=== PATIENT | female | born 1955 | race Hispanic/Latino ===

== ENCOUNTER 2017-04-08 15:07 | Emergency (ER) | payer OTHER ==
[~2017-04-08] VITALS: Ht 180.3 cm; Wt 91.1 kg
[~2017-04-08 15:07] MED LIST: ASCORBIC ACID PO; KLO5T PO; MAGN400O4 PO; PANT40TA2 PO; PRED5DRO6 AFFECT_EYE; RANI150T11 PO; SODIUM BICARBONATE PO
[2017-04-08 15:21] VITALS: BP 159/88; PULSE 77; RESP 18; O2SAT 98
[2017-04-08 15:38] VITALS: BP 139/71; PULSE 68; RESP 18; O2SAT 100
--- NOTE | 2017-04-08 15:47 | ED.REPORT ---
HPI-Headache Date of Service April 08, 2017 ED Provider: Cricket Lima MD Pt is a 61 y/o female w/ a hx of NIDDM, hyperlipidemia, presenting to the ED c/ o left-sided lumbar back pain with radiation up to the neck and LUE onset 1 week ago. She described her pain as a dull ache. Her pain is exacerbated by bending, twisting, movement, and lifting her arm. Pain is relieved by Ibuprofen and seems to be better in the morning. She has never experienced similar symptoms. She c/o associated nausea. Nursing Notes Stated Complaint: PAIN IN BACK OF THE HEAD Chief Complaint: General Complaint Nursing Notes Reviewed: Yes Allergies: Coded Allergies: No Known Allergies (Unverified , 04/21/16) Scheduled ([sod bicarb/vit C]) 1 PACKET PO HS Magnesium Hydroxide (Milk of Magnesia) 400 Mg/5 Ml Oral.susp 5 ML PO DAILY Pantoprazole DR (Protonix) 40 Mg Tablet 40 MG PO BID Prednisolone Acetate (Prednisolone Acetate) 5 Ml Drops.susp 1 DROP AFFECT_EYE DIRECTED Ranitidine (Zantac) 150 Mg Tablet 150 MG PO DAILY Scheduled PRN Clonazepam (Clonazepam) 0.5 Mg Tablet Unknown Dose PO HS PRN PRN For Insomnia General Time Seen by MD: 15:30 Chief Complaint Other (back pain) Hx Obtained From: Patient Arrived By: Walk-in Sudden in Onset?: No Onset Occurred: 1 week ago Symptom Duration: Since onset Quality: Aching, Painful Severity: Current: Moderate Severity: Maximum: Moderate Similar Sx Previous: No Past Medical History Past Medical History GERD Diverticulitis NIDDM Reports: Hyperlipidemia Past Surgical History Breast cyst removal Eye surgery x2 Reports: Appendectomy, Cholecystectomy, Hysterectomy Smoking History Never Smoker Social History Other Social History: Good social support, Local resident Ambulatory Status Independent Review of Systems Constitutional: Denies: Chills, Fever GI: Reports: Nausea, Denies: Vomiting Musculoskeletal: Reports: Back pain, Extremity pain, Neck pain Neurologic: Reports: Headache Complete sys rev & neg: except as marked. Physical Exam Initial Vital Signs Vital Signs (First) Date Time Temp Pulse Resp B/P Pulse Ox O2 Delivery O2 Flow Rate FiO2 04/08/17 15:21 37.0 77 18 159/88 98 Room Air Initial VS: Reviewed, Vital signs abnormal ENT: Mucous membranes moist, Conjunctiva normal, No scleral icterus Respiratory: Breath sounds normal, Clear to auscultation, No respiratory distress Cardiovascular: Regular rate & rhythm, Heart sounds normal, Intact distal pulses Abdomen / GI: Soft, Non-tender, No guarding, No rebound, No distention Extremities: Vascular intact, Neuro intact, No swelling, No tenderness Skin: Warm, Dry, No cyanosis Psychiatric: Mood/affect normal, Behavior normal, Normal thought content General/Constitutional: Awake, Alert, No acute distress, Well appearing, Cooperative, Not toxic appearing Head / Eyes: Atraumatic, Normocephalic, PERRL Neck: Atraumatic, Supple, No meningismus, Full range of motion, No adenopathy, No swelling, Non-tender, No midline vertebral tend Neurologic: Oriented X3, Speech NL, No motor deficits, No sensory deficits, CN II - XII intact, Cerebellar NL, Memory NL Back: Atraumatic, Inspection NL, Full range of motion, No midline vertebral tend Tenderness to palpation about lumbar paraspinal region left greater than right. Interpretation & Diagnostics Lab Results Interpretation Result Diagram: 04/08/17 1555 04/08/17 1555 Test 04/08/17 15:55 White Blood Count 7.8th/mm3 (3.8-10.1) Red Blood Count 4.34mil/mm3 (3.90-5.20) Hemoglobin 13.0g/dL (12.0-15.6) Hematocrit 39.7% (35.0-46.0) Mean Corpuscular Volume 91.5fL (81-100) Mean Corpuscular Hemoglobin 30.0pg (27.0-35.0) Mean Corpuscular Hemoglobin Concent 32.7% (32.0-37.0) Red Cell Distribution Width 13.5% (12.3-15.4) Platelet Count 236bil/L (150-400) Neutrophils (%) (Auto) 46.1% (40-74) Lymphocytes (%) (Auto) 40.3% (14-46) Monocytes (%) (Auto) 6.8% (4-12) Eosinophils (%) (Auto) 5.9% (0-5) Basophils (%) (Auto) 0.8% (0-3) Sodium Level 140mEq/L (134-144) Potassium Level 4.9mEq/L (3.5-5.2) Chloride Level 101mEq/L (97-108) Carbon Dioxide Level 26mmol/L (18-29) Blood Urea Nitrogen 10mg/dL (6-24) Creatinine 0.79mg/dL (0.57-1.00) Estimat Glomerular Filtration Rate 107mL/min (>59) Glucose Level 110mg/dL (60-99) Calcium Level 9.8mg/dL (8.5-10.1) Magnesium Level 2.1mg/dL (1.6-2.6) Total Bilirubin 0.2mg/dL (0.0-1.2) Aspartate Amino Transf (AST/SGOT) 31U/L (0-50) Alanine Aminotransferase (ALT/SGPT) 33U/L (0-32) Alkaline Phosphatase 82U/L (25-165) Troponin T < 0.010ug/L (0.0-0.011) Total Protein 7.6g/dL (6.4-8.4) Albumin 4.5g/dL (3.4-5.0) Hold Padgett Top Tube Received (Received) ECG Interpretation Time: 16:40 Interpreted by: ED physician Normal ECG Interpretation: Normal ECG w/ rate of... (66), Normal rate, Normal sinus rhythm, No acute ischemic changes, Normal QRS, Normal axis, Normal intervals, No change from prior ECGs, Adequate tracing X-Ray Chest Interpretation Chest Xray Interpretation: IMPRESSION: Nodular opacity overlying the right middle lobe as above. This could represent a nipple shadow. As clinically indicated, followup imaging with nipple markers may be obtained. Otherwise, interval followup for nodular opacity is recommended. Dictated by: Ayana Molina M.D. on 04/08/2017 at 16:32 Approved by: Ayana Molina M.D. on 04/08/2017 at 16:35 View: Portable, 1 view Interpretation / Wet Read by: Interpret - Radiologist Re-Eval/Medical Decision Med Decision/Clinical Course Pt is a 61 y/o female w/ a hx of NIDDM, hyperlipidemia, presenting to the ED c/ o left-sided lumbar back pain with radiation up to the neck and LUE onset 1 week ago. She described her pain as a dull ache. Her pain is exacerbated by bending, twisting, movement, and lifting her arm. Pain is relieved by Ibuprofen and seems to be better in the morning. She has never experienced similar symptoms. She c/o associated nausea. Here in the emergency department the patient is afebrile with stable vital signs examination as above. EKG obtained and interpreted by myself as documented above. CXR: Nodular opacity overlying the right middle lobe as above. This could represent a nipple shadow. As clinically indicated, followup imaging with nipple markers may be obtained. Otherwise, interval followup for nodular opacity is recommended. Labs notable as below: CBC: Unremarkable CMP: Unremarkable Troponin: negative Meds given: Flexeril Overall presentation seems most consistent with musculoskeletal pain given positional nature, exacerbation with movement. I considered atypical presentation of acute coronary syndrome however initial screening troponin and EKG are reassuring. The patient does have some risk factors for coronary artery disease. Presentation seems overwhelmingly more consistent with musculoskeletal pain. Therefore, I do not feel that further workup is immediately indicated. Patient advised to take ibuprofen, apply ice packs/hot packs and stretching/range of motion exercises. She will follow up closely with her primary care physician. Prior to discharge follow-up and return precautions were reviewed in detail with the patient who verbalized understanding and agreement with the plan. The patient was discharged in stable condition. Re-Evaluation/Progress : Time of Eval: 17:29 )( Patient Status: Condition improved, Moderate relief Re-Evaluation/Progress Note: Pt rechecked. Informed pt of plan for treatment. Pt understands and agrees with plan for treatment. F/U instructions and RTER warnings given. All questions addressed. Counseled Regarding: Diagnosis, Lab results, Need for follow-up, When/why to return to ED Discharge & Departure Impression: Primary Impression: Musculoskeletal back pain Additional Impressions: History of diabetes mellitus History of hyperlipidemia Disposition: Home Discharge Condition All VS Reviewed: Yes Condition: Stable Additional Instructions: Thank you for seeking care at the emergency room. It is difficult for us to make definitive diagnoses in the ED but we believe that you are experiencing muscular back pain. Our primary goal today in the ED was to evaluate you for any life-threatening conditions. Your evaluation was reassuring. Your labs including marker for heart damage and EKG were normal today. There was a possible small nodule on your right lung. This is nothing to be worried about right now. I recommend you follow-up with your primary care doctor regarding this. Take 600 mg Ibuprofen every 6 hours as needed for pain. Try hot or cold packs as well to ease the pain. You should follow-up with your primary doctor in the next week. You should return to the ED immediately if you develop bowel or bladder incontinence, fever, profound weakness, chest pain, trouble breathing, passing out, or any other concerning signs or symptoms. Thank you for letting us partake in your care today. Referrals: [facility] Scribe Attestation Portions of this note were transcribed by Jack Lara. I, Dr. Lima personally performed the history, physical exam and medical decision-making; I reviewed and confirmed the accuracy of the information in the transcribed note. Signed by Ibrahima Belle, 04/08/17 - 1599 Cricket Lima MD April 08, 2017 15:47 JACK LARA April 08, 2017 15:51
[2017-04-08 16:19] LABS: BASOPHILS % (AUTO) 0.8 % (0-3); EOSINOPHILS % (AUTO) 5.9 % (0-5); MONOCYTES % (AUTO) 6.8 % (4-12); Mean Corpuscular Volume 91.5 fL (81-100); NEUTROPHILS % (AUTO) 46.1 % (40-74); Platelet Count 236 bil/L (150-400)
--- NOTE | 2017-04-08 16:37 | DRSVH ---
PROCEDURE: X-RAY CHEST ONE VIEW, PORTABLE ([id number]) INDICATIONS: chest pain TECHNIQUE: One view of the chest was acquired. COMPARISON: [facility], CR, XR ABD ACUTE SERIES 3VW, 06/17/2016, 19:16. FINDINGS: Surgical changes and devices: None. Lungs and pleura: No pleural effusions or pneumothorax. Interval development of 16 mm nodular opacit y overlying the right lower lobe. This was not present on the 06/17/16 exam. Mediastinum: Mediastinal contours appear normal. Heart size is normal. Bones and chest wall: No suspicious bony lesions. Overlying soft tissues appear unremarkable. IMPRESSION: Nodular opacity overlying the right middle lobe as above. This could represent a nipple s hadow. As clinically indicated, followup imaging with nipple markers may be obtained. Otherwise, inte rval followup for nodular opacity is recommended. Dictated by: Ayana Molina M.D. on 04/08/2017 at 16:32 Approved by: Ayana Molina M.D. on 04/08/2017 at 16:35
[2017-04-08 16:41] LABS: TROPONIN T < 0.010 ug/L (0.0-0.011)
[2017-04-08 16:51] LABS: Magnesium 2.1 mg/dL (1.6-2.6)
[2017-04-08 17:59] VITALS: BP 139/71; PULSE 68; RESP 18; O2SAT 100
== END 2017-04-08 18:05 | disposition home or self-care (01) ==
LOC: SED 15:07
DX: M54.5 Low back pain (principal); E11.9 Type 2 diabetes mellitus without complications; K21.9 Gastro-esophageal reflux disease without esophagitis; E78.5 Hyperlipidemia, unspecified